=== PATIENT | male | born 1990 | race Caucasian/White ===

== ENCOUNTER 2021-12-15 08:57 | Emergency (ER) | payer SELFPAY ==
[2021-12-15 09:11] VITALS: BP 135/78; PULSE 98; RESP 16; TEMP 36.7; O2SAT 97; BMI 27.2
--- NOTE | 2021-12-15 09:22 | DI.US.S_ITS ---
PROCEDURE: US SCROTUM INDICATIONS: left testicular pain, swelling TECHNIQUE: Real-time scanning was performed of the scrotum and testicles, with image documentation. Color and pulse Doppler interrogation was performed of both testicles. COMPARISON: None. FINDINGS: Right: Testicle is normal in size at 5 x 3.2 x 2.4 cm, and homogenous in echotexture. Epididymis is normal in overall size and morphology. Epididymis measures 1.2 cm. Epididymal head cyst measuring 1.2 cm. No hydrocele or varicoceles. Overlying scrotal skin is normal in thickness. Left: Testicle is normal in size at 4.4 x 3.5 x 2.8 cm, and homogeneous in echotexture. Has a twisted appearance on the cine clips. Mildly thickened measuring 1.7 cm. Small hydrocele. No varicoceles. Overlying scrotal skin is normal in thickness. Doppler: Increased blood flow in the left epididymis. The left testicle demonstrates slight diminished blood flow compared to the right. However, this may be slightly improved towards the into the exam. IMPRESSION: 1. Left epididymis has a twisted appearance. There is slight decreased blood flow in the left testicle compared to the right. There is increased blood flow in the left epididymis. Findings concerning for torsion detorsion phenomenon about the left epididymis/testicle. 2. Small left hydrocele. No varicocele. 3. No testicular mass. Comment: Findings were discussed with Stcaie Abarca at the time of dictation. Dictated by: Richard Herman M.D. on 12/15/2021 at 10:22 Approved by: Richard Herman M.D. on 12/15/2021 at 10:36
--- NOTE | 2021-12-15 09:23 | ED_ITS ---
HPI - Male Genitourinary General Chief complaint: Urogenital-Male Stated complaint: Swollen testicles Time Seen by Provider: 12/15/21 09:21 Source: patient Mode of arrival: Ambulatory Limitations: no limitations History of Present Illness HPI Narrative: This is a 31-year-old male with prior inguinal hernia repair. Patient complains of left testicular pain that started about 1:00 a.m. this morning patient states it has been persisting. He is had 1 prior episode in the past lasted for an hour and then resolved. Patient states no trauma no injury. He denies any urinary issues. He states pain is in left testicle and now radiating up towards his abdomen. Patient states he feels nauseated but has not been vomiting, denies chest pain or shortness breath. Denies back or flank pain. Denies issues with bowel movements. Patient denies any other medical issues. Denies surgeries besides inguinal hernia repair remotely. Patient uses tobacco, occasional alcohol, denies illicit. No known drug allergies. Related Data Allergies Allergy/AdvReac Type Severity Reaction Status Date / Time No Known Drug Allergies Allergy Unknown Unverified 07/27/17 12:42 [NO KNOWN DRUG ALLERGIES] Review of Systems Review of Systems ROS Unobtainable: All systems reviewed & are unremarkable except as noted in HPI and below Exam Narrative Exam Narrative: GENERAL: Alert and oriented x three, moderate distress. HEENT: Head normocephalic, atraumatic, EOMI, pupils reactive, face symmetric, moist mucous membranes NECK: Supple, full range of motion CARDIOVASCULAR: Regular rate and rhythm without murmurs, rubs or gallops. RESPIRATORY: Breath sounds equal bilaterally, no wheezes rales or rhonchi. ABDOMEN: Soft, nontender. Normoactive bowel sounds all 4 quadrants. No guarding or rebound, rigidity, no mass : No CVA tenderness. Male: Patient has normal penile exam, right testicle actually appears elevated, left testicle appears swollen, generalized tenderness there does appear to have some fluid but no mass appreciated. Patient is quite uncomfortable. Cremasteric reflex is intact bilaterally No penile discharge or lesions, testicles non-tender, cremasteric reflex intact, no inguinal hernias noted. EXTREMITIES: Normal range of motion, no clubbing or edema. Neurovascularly intact NEUROLOGICAL: Cranial nerves II through XII grossly intact. Moving all extremities SKIN: Warm, dry, no petechiae, no rashes or lesions. Initial Vital Signs Initial Vital Signs: Vital Signs Temperature 98.0 F 12/15/21 09:11 Pulse Rate 98 H 12/15/21 09:11 Respiratory Rate 16 12/15/21 09:11 Blood Pressure 135/78 12/15/21 09:11 Pulse Oximetry 97 12/15/21 09:11 Oxygen Delivery Method 12/15/21 09:11 Course Orders Ordered: Discontinued Medications Ketorolac Tromethamine (Ketorolac 30 Mg/Ml Vial) 30 mg IV NOW ONE Stop: 12/15/21 09:23 Last Admin: 12/15/21 09:31 Dose: 30 mg Documented By: CTS Ondansetron HCl (Ondansetron 4 Mg/2 Ml Inj) 4 mg IV NOW ONE Stop: 12/15/21 09:23 Last Admin: 12/15/21 09:32 Dose: 4 mg Documented By: CTS Consultations Consultation #1: Rossana, urology will take patient to OR today. After discussion with patient he is reluctant secondary to insurance issues as well as child guidance counselor issues. Patient has also asked about having a vasectomy with his surgery to repair torsion. Their recommendation is OR today. If patient is unwilling or unable to they are happy to see him within the week for repeat ultrasound and repair. We discussed patient has had risks explained to him and need for emergent treatment. Time: 11:41 Vital Signs Vital signs: Vital Signs - 8 hr 12/15/21 09:11 12/15/21 11:29 Temperature 98.0 F Pulse Rate 98 H 70 Respiratory Rate 16 16 Blood Pressure 135/78 129/65 Pulse Oximetry 97 98 Oxygen Delivery Method Room Air Room Air MDM - Male Genitourinary Lab Data Labs: Lab Results 12/15/21 12/15/21 Range/Units 10:30 10:30 Urine Color Yellow Urine Appearance Clear Urine pH 6.0 (4.5-8.0) Ur Specific [place] <=1.005 (1.000-1.035) Urine Protein Negative (Negative) Urine Glucose (UA) Negative (Negative) g/dL Urine Ketones 1+ H (NEGATIVE) Urine Occult Blood Trace-lysed (Negative) Urine Nitrate Negative (Negative) Urine Bilirubin Negative (NEGATIVE) Urine Urobilinogen 0.2 (0.2) E.U./dL Ur Leukocyte Esterase Negative (NEGATIVE) Urine RBC None seen (0-5/HPF) Urine WBC None seen (0-5/HPF) Ur Squamous Epith Cells None seen (0-5/HPF) Urine Bacteria None seen (None) Ur Culture Indicated? Cult not indicated Ur Chlamydia DNA (PCR) Not detected N gonorrhoeae DNA (PCR) Not detected Imaging Data scrotum US: Radiologist's Impression: Close Scrotum Ultrasound (Signed) CallRichard - 12/15/21 Launch?[address] [address] Ultrasound Report Signed Patient: Silvio Melendez MR#: [id number] : 1990 Acct:[id number] Age/Sex: 31 / M Date of Service: 12/15/21 Loc: ED Accession Number: [id number] ?? Procedure: US scrotum Ordering Provider: Stacie Abarca D.O. PROCEDURE:? US SCROTUM ? INDICATIONS:? left testicular pain, swelling ? TECHNIQUE:? Real-time scanning was performed of the scrotum and testicles, with image documentation.? Color and pulse Doppler interrogation was performed of both testicles.? ? COMPARISON:? None. ? FINDINGS:? ? Right:? Testicle is normal in size at 5 x 3.2 x 2.4 cm, and homogenous in echotexture.? Epididymis is normal in overall size and morphology.? Epididymis measures 1.2 cm.? Epididymal head cyst measuring 1.2 cm.? No hydrocele or varicoceles.? Overlying scrotal skin is normal in thickness.? ? Left:? Testicle is normal in size at 4.4 x 3.5 x 2.8 cm, and homogeneous in echotexture.? Has a twisted appearance on the cine clips.? Mildly thickened measuring 1.7 cm.? Small hydrocele.? No varicoceles.? Overlying scrotal skin is normal in thickness.? ? Doppler:? Increased blood flow in the left epididymis.? The left testicle demonstrates slight diminished blood flow compared to the right.? However, this may be slightly improved towards the into the exam. ? IMPRESSION:? 1. Left epididymis has a twisted appearance.? There is slight decreased blood flow in the left testicle compared to the right.? There is increased blood flow in the left epididymis.? Findings concerning for torsion detorsion phenomenon about the left epididymis/testicle. ? 2. Small left hydrocele.? No varicocele. ? 3. No testicular mass. ? Comment: Findings were discussed with Stacie Abarca at the time of dictation. ? ? Dictated by: Richard Herman M.D. on 12/15/2021 at 10:22 ? ? Approved by: Richard Herman M.D. on 12/15/2021 at 10:36? MDM Narrative Medical decision making narrative: This is a 31-year-old male with history and symptoms suspicious for testicular torsion. Patient does have some decreased flow but also some twisting of the epididymitis. Discussed with urology who would like to take patient to OR today. Patient is reluctant secondary to insurance but also has issues with child guidance counselor that he can not fully resolved today. Patient notes that he does not wish to have more children he states that fertility is not an issue for him and he is actually interested in a vasectomy. He also states that his mother is urologist and has explained that he needs to have surgery today as well. Offered to have [employer] meet with the patient to assist with insurance issues, child guidance counselor etc.. Patient very politely declines he does understand risks versus benefits. He is aware that he can follow up with Urology and they have offered if he is not going to go to surgery today to see him within the next week for repeat imaging and set up for surgery. Patient is aware that he can return at any time. All questions answered. We did discuss that he can lose the testicle if this is left untreated. Discharge Plan Departure Patient Disposition: Home Clinical Impression: Testicular torsion Instructions: Testicular Torsion Activity Restrictions/Additional Instructions: It is recommended that you have surgery to repair your torsion today. Dr. Vargas is happy to take you today to the OR. Please call to set up follow-up in the next week. Social work is available if you would like some assistance with setting up insurance Please follow-up with Dr. Vargas. Call to set up an appointment and he will repeat ultrasounds but plan would be to repair or perform surgery to prevent recurrent torsion in the future. If you are interested in vasectomy as well the y may be able to do this at the same time. Please return for recurrent symptoms, intractable pain, fevers, new abdominal, back or flank pain or other new or concerning symptoms. Referrals: Lyndsey Vargas MD [Physician] - Visit Report Forms: Patient Portal/API
[2021-12-15] MEDS: KETOROLAC 30 MG/ML VIAL IV (09:31)
[2021-12-15] MEDS: ONDANSETRON 4 MG/2 ML INJ IV (09:32)
[2021-12-15 10:43] LABS: Appearance Urine UA CLEAR; Bilirubin Urine UA NEGATIVE (NEGATIVE); Color Urine UA YELLOW; Glucose Urine UA NEGATIVE (Negative); Ketones Urine UA 1+ (NEGATIVE); Leukocyte Esterase Urine UA NEGATIVE (NEGATIVE); Nitrite Urine UA NEGATIVE (Negative); Occult Blood Urine UA TRACE-LYSED (Negative); Protein Urine UA NEGATIVE (Negative); Specific Gravity Urine UA <=1.005 (1.000-1.035); Urobilinogen Urine UA 0.2 E.U./dL (0.2)
[2021-12-15 11:00] LABS: Bacteria Urine None Seen; Culture Indicated Urine Cult Not Indicated; RBC Urine None Seen (0-5/HPF); Squamous Epithelial Cell Urine None Seen (0-5/HPF); WBC Urine None Seen (0-5/HPF)
[2021-12-15 11:29] VITALS: BP 129/65; PULSE 70; RESP 16; O2SAT 98
[2021-12-15 11:47] VITALS: BP 134/87; PULSE 77; RESP 16; O2SAT 97
[2021-12-15 12:08] LABS: Urine N gonorrhoeae NOT DETECTED
[2021-12-15 12:28] LABS: Urine Chlamydia NOT DETECTED
== END 2021-12-15 11:48 | disposition home or self-care (01) ==
PROVIDERS: Emergency Provider Emergency Medicine
DX: N44.00 Torsion of testis, unspecified (principal)
CPT/HCPCS: 36415; 76870; 81001; 87491; 87591; 93975; 96374; 96375; 99284; J1885; J2405

== ENCOUNTER 2021-12-16 23:58 | Emergency (ER) | payer SELFPAY ==
--- NOTE | 2021-12-17 00:01 | ED.MALEGU ---
HPI - Male Genitourinary General Chief complaint: Urogenital-Male Stated complaint: Testicular torsion Time Seen by Provider: 12/17/21 00:00 History of Present Illness HPI Narrative: 31-year-old male nonsmoker with history of recent ER visit for testicular torsion that had elected not to go to the operating room for social reasons returns with similar symptoms. He has had severe left testicular pain in the absence of trauma or other injury. Since he was discharged she is had a persistent basal pain but has had episodes of significant worsening of his pain. He is back as the pain tonight is become quite severe and seems to be worse when he moves and improves with rest. He is had no fever or chills, he is nauseated but denies any vomiting. Denies dysuria, frequency or urgency. 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 He has been NPO to solids since 5:00 p.m. He states he has been having troubles with his left testicle off and on for about ten years. Related Data Previous Rx's Medication Instructions Recorded levofloxacin 500 mg tablet 500 mg PO DAILY #10 tabs 12/17/21 Allergies Allergy/AdvReac Type Severity Reaction Status Date / Time No Known Drug Allergies Allergy Unknown Unverified 07/27/17 12:42 [NO KNOWN DRUG ALLERGIES] Review of Systems Review of Systems Narrative: GENERAL: Denies chills, fatigue, malaise, fever, sweats. HEENT: Denies sinus pain, ear pain, sore throat, difficulty swallowing, dizziness. RESPIRATORY: Denies dyspnea, cough, wheezing, hemoptysis, sputum. CARDIOVASCULAR: Denies chest pain, palpitations, orthopnea, edema, GASTROINTESTINAL: Denies nausea, vomiting, abdominal pain, diarrhea, constipation, melena. : See HP MUSCULOSKELETAL: denies weakness, joint pain, or bony pain SKIN: Denies rash, skin lesions, or other NEUROLOGIC: Denies weakness, headache, numbness, change in speech, confusion, seizures, incoordination. PSYCHIATRIC: No concerning psychosocial issues. 12 point review of systems is negative except for those stated above Exam Narrative Exam Narrative: GENERAL: [31] year old patient appears stated age. Well-developed patient, in moderate distress, obviously uncomfortable HEAD: Atraumatic. Normocephalic. EYES: Pupils equal round and reactive. Extraocular motions intact. No scleral icterus. No injection or drainage. ENT: Nose without bleeding, purulent drainage. Throat without erythema, tonsillar hypertrophy or exudate. Airway patent. NECK: Trachea midline. Non tender CARDIOVASCULAR: Regular rate and rhythm without murmurs, gallops, or rubs. RESPIRATORY: Clear to auscultation. Breath sounds equal bilaterally. No wheezes, rales, or rhonchi. GASTROINTESTINAL: Abdomen soft, non-tender, nondistended. : Patient examined in standing position, left testicle is exquisitely tender to palpation, no improvement with elevation, no scrotal swelling or edema noted, cremasteric reflexes intact EXTREMITIES: No edema or joint tenderness. BACK: Nontender without deformity or crepitance. No flank tenderness. NEURO: AOx3. SKIN: No rash or erythema of visible areas Initial Vital Signs Initial Vital Signs: Vital Signs Temperature 98.2 F 12/17/21 00:09 Pulse Rate 88 12/17/21 00:09 Respiratory Rate 22 12/17/21 00:09 Blood Pressure 142/85 H 12/17/21 00:09 Pulse Oximetry 99 12/17/21 00:09 Oxygen Delivery Method 12/17/21 00:09 Course Orders Ordered: ED Orders 12/17/21 00:12 US scrotum Stat 12/17/21 00:24 COVID19 -Nasal RAPID/Pre-Proc Stat 12/17/21 00:40 Complete Blood Count AUTO DIFF Stat Comprehensive Metabolic Panel Stat Discontinued Medications Hydromorphone HCl (Hydromorphone 0.5 Mg Inj) 0.5 mg IV NOW ONE Stop: 12/17/21 00:22 Last Admin: 12/17/21 00:29 Dose: 0.5 mg Documented By: ARIES Sodium Chloride (Normal Saline 0.9%) 1,000 mls @ 125 mls/hr IV CONT RODRI Last Infusion: 12/17/21 04:04 Dose: 0 mls/hr Documented By: Admin: 12/17/21 00:29 Dose: 125 mls/hr Documented By: ARIES Consultations Consultation #1: Discussed with on-call urologist immediately upon arrival, given his recent visit, ultrasound findings and plan for the OR, however it was requested that a repeat ultrasound is performed given concern for possible orchitis or epididymitis. Consultation #2: Call back to Dr. Cohen upon completion of ultrasound. We have discussed the patient's history and physical exam as well as multiple visits and episodes of similar circumstances over the past 10 years. He states that ultrasound demonstrating orchitis precludes any surgical intervention, he recommends antibiotics, pain control and follow-up. Vital Signs Vital signs: Vital Signs - 8 hr 12/17/21 00:09 Temperature 98.2 F Pulse Rate 88 Respiratory Rate 22 Blood Pressure 142/85 H Pulse Oximetry 99 Oxygen Delivery Method Room Air MDM - Male Genitourinary Lab Data Result diagrams: 12/17/21 00:40 12/17/21 00:40 Labs: Lab Results 12/17/21 12/17/21 12/17/21 Range/Units 00:24 00:40 00:40 WBC 19.2 H (4.5-11.0) X10^3/uL RBC 4.92 (4.5-5.9) X10^6/uL Hgb 14.9 (13.5-17.5) g/dL Hct 43.7 (41-53) % MCV 88.8 (80-100) fL MCH 30.4 (26-34) PG MCHC 34.2 (30-36) % RDW 12.8 (11.6-14.8) % Plt Count 232 (150-400) X10^3/uL Neut % (Auto) 79.7 H (50-75) % Lymph % (Auto) 12.4 L (25-40) % [place] % (Auto) 7.1 (3-14) % Eos % (Auto) 0.2 L (2-4) % Baso % (Auto) 0.6 (0-2) % Neut # (Auto) 56074 H (2432-4121) /uL Lymph # (Auto) 2400 (4056-5789) /uL [place] # (Auto) 1400 H (0-900) /uL Eos # (Auto) 0 (0-450) /uL Baso # (Auto) 100 (0-100) /uL Sodium 137 (137-145) mmol/L Potassium 3.7 (3.4-5.1) mmol/L Chloride 104 (98-107) mmol/L Carbon Dioxide 24 (22-32) mmol/L BUN 22 H (9-20) mg/dL Creatinine 1.07 (0.66-1.25) mg/dL Estimated GFR > 60 (>60) mL/min BUN/Creatinine Ratio 20.6 (6-22) Glucose 97 (70-100) mg/dL Calcium 8.9 (8.4-10.2) mg/dL Total Bilirubin 0.5 (0.2-1.3) mg/dL AST 37 (17-59) IU/L ALT 24 (<50) IU/L Alkaline Phosphatase 71 (38-126) U/L Total Protein 7.1 (6.3-8.2) g/dL Albumin 4.4 (3.5-5.0) g/dL Globulin 2.7 (1.7-4.1) g/dL Albumin/Globulin Ratio 1.6 (1.0-2.8) SARS-CoV-2 (PCR) Negative (Negative) Urine Dip Bedside Urine Glucose Negative Bedside Urine Bilirubin - Negative Bedside Urine Ketone - Negative Urine Specific [place] 1.015 Bedside Urine Occult Blood + Bedside Urine pH 6.0 Bedside Urine Protein - Negative Bedside Urine Urobilinogen - Negative Bedside Urine Nitrite - Negative Bedside Urine Leukocytes - Negative Esterase Imaging Data Scrotal US: Radiologist's Impression: Left epididymo-orchitis. No abscess. Mild right epididymitis can not be completely excluded. No testicular torsion MDM Narrative Medical decision making narrative: Extensive discussion with patient and multiple calls to Urology. Today there is no evidence of torsion and given presentation orchitis patient requires antibiotics and pain control. Patient became a bit upset at this discussion and states he will not take the antibiotics, he is had them in the past and they do not help. I explained to him my discussions with Urology in the strong recommendation. The patient is awake, alert and oriented and demonstrates capacity to make his own decisions. He understands that failure to follow this treatment plan he may develop worsening pain, potentially sepsis, complications could also include sterility among others. He states he understands this and is ready to leave. Despite this I sent a prescription to [email or web address] and printed a prescription coupon from [employer], I also sent a text of the coupon to his phone after confirming his number. Return precautions have been discussed and questions have been answered to his apparent satisfaction Discharge Plan Departure Patient Disposition: Home Clinical Impression: Testicular pain, left, Acute orchitis Instructions: DI for Orchitis Activity Restrictions/Additional Instructions: *You have been diagnosed with [left testicular pain due to orchitis. As we discussed your ultrasound today shows no evidence of testicular torsion but demonstrates infection of the testicle itself.] *What to do: *Please continue to take your regular medications as directed. [x ] New medication prescriptions sent to your pharmacy: [[facility] ] [ ] New medication written as a paper prescription [ ] No new medications given *Please follow up with Dr. Cohen (Urology) in 2-3 days, call for an appointment. Let them know you were seen in the Emergency Department and that we ask that you be seen in follow up. We will electronically transmit a record of today's note *Return to Emergency Department if you should have any new, worsening or concerning symptoms, such as [fever greater than 101 F, shaking chills, worsening pain, persistent vomiting or other bothersome symptoms] Prescriptions: New levofloxacin 500 mg tablet 500 mg PO DAILY Qty: 10 0RF Referrals: Javi Cohen MD [Physician] - Visit Report Forms: Patient Portal/API
[2021-12-17 00:09] VITALS: BP 142/85; PULSE 88; RESP 22; TEMP 36.8; O2SAT 99
--- NOTE | 2021-12-17 00:12 | DI.US.S_ITS ---
PROCEDURE: US SCROTUM INDICATIONS: SEVERE LEFT TESTICULAR PAIN TECHNIQUE: Real-time scanning was performed of the scrotum and testicles, with image documentation. Color and pulse Doppler interrogation was performed of both testicles. COMPARISON: [facility], , US SCROTUM, 12/15/2021, 9:41. FINDINGS: Right: Testicle is normal in size at 5.4 x 3 x 1 x 2.8 cm, and homogenous in echotexture. Epididymis measures 1.6 cm. Epididymis appears heterogeneous. No hydrocele or varicoceles. Overlying scrotal skin is normal in thickness. Left: Testicle is normal in size at 5 x 3.6 x 3.2 cm, and has a striated appearance compared to 12/15/2021. Epididymis measures 1.3 cm. Epididymis appears heterogeneous. Trace hydrocele. No varicoceles. Overlying scrotal skin is normal in thickness. The previously seen a twisted appearance of the left testicular pedicle is not appreciated. Doppler: There is asymmetric increased blood flow in the left testicle and epididymis compared to the right. IMPRESSION: 1. Asymmetric increased blood flow in the left testicle and epididymis compared to the right. The left testicle has a striated appearance. These findings are new compared to 12/15/2021. This could be due to epididymoorchitis or reactive hyperemia. 2. Trace left hydrocele. 3. No testicular torsion demonstrated. Dictated by: Richard Herman M.D. on 12/17/2021 at 7:57 Approved by: Richard Herman M.D. on 12/17/2021 at 8:05
[2021-12-17] MEDS: HYDROMORPHONE 0.5 MG INJ IV (00:29)
[2021-12-17] MEDS: SODIUM CHLORIDE 0.9% 1,000 ML 125 ML IV (00:29)
[2021-12-17 00:46] LABS: COVID19 -Nasal RAPID Negative (Negative)
[2021-12-17 00:51] LABS: Add Manual Diff / Slide Review NO; Basophils Absolute Auto 100 /uL (0-100); Basophils Percent Auto 0.6 % (0-2); Eosinophils Absolute Auto 0 /uL (0-450); Eosinophils Percent Auto 0.2 % (2-4); Hematocrit 43.7 % (41-53); Hemoglobin 14.9 g/dL (13.5-17.5); Lymphocytes Absolute Auto 2400 /uL (1100-4500); Lymphocytes Percent Auto 12.4 % (25-40); Mean Corpuscular HGB Conc 34.2 % (30-36); Mean Corpuscular Hemoglobin 30.4 PG (26-34); Mean Corpuscular Volume 88.8 fL (80-100); Monocytes Absolute Auto 1400 /uL (0-900); Monocytes Percent Auto 7.1 % (3-14); Neutrophils Absolute Auto 15200 /uL (1500-7000); Neutrophils Percent Auto 79.7 % (50-75); Platelet Count 232 X10^3/uL (150-400); Red Blood Cell Count 4.92 X10^6/uL (4.5-5.9); Red Cell Distribution Width 12.8 % (11.6-14.8); White Blood Cell Count 19.2 X10^3/uL (4.5-11.0)
[2021-12-17 01:02] LABS: Alanine Aminotransferase 24 IU/L (<50); Albumin 4.4 g/dL (3.5-5.0); Albumin Globulin Ratio 1.6 (1.0-2.8); Alkaline Phosphatase 71 U/L (38-126); Aspartate Aminotransferase 37 IU/L (17-59); BUN Creatinine Ratio 20.6 (6-22); Bilirubin Total 0.5 mg/dL (0.2-1.3); Blood Urea Nitrogen 22 mg/dL (9-20); Calcium 8.9 mg/dL (8.4-10.2); Carbon Dioxide 24 mmol/L (22-32); Chloride 104 mmol/L (98-107); Estimated Glomerular Filt Rate > 60 mL/min (>60); Globulin 2.7 g/dL (1.7-4.1); Glucose 97 mg/dL (70-100); HEMOLYSIS 49 (0-50); Potassium 3.7 mmol/L (3.4-5.1); Sodium 137 mmol/L (137-145); Total Protein 7.1 g/dL (6.3-8.2)
--- NOTE | 2021-12-17 03:53 | PC.NURSE ---
exam deferred to KIET Blackmon
== END 2021-12-17 04:06 | disposition home or self-care (01) ==
PROVIDERS: Emergency Provider Emergency Medicine
DX: N45.2 Orchitis (principal); N50.812 Left testicular pain; Z20.822 Contact with and (suspected) exposure to COVID-19
CPT/HCPCS: 76870; 80053; 81003; 85025; 87635; 93975; 96361; 96374; 99283; 99284; C9803; J1170